=== PATIENT | female | born 1955 | race Caucasian/White ===

== ENCOUNTER → 2016-07-10 | Outpatient (CLI) | payer BC ==
[~2016-07-10] MED LIST: ASPEC81 PO; BUDESUS; CETI10TA84 PO; CRF1 PO; HYDC25 PO; LSN25 PO; METO25TA3 PO; MULT-506 PO; MYLANTA; OMEG10007 PO; PANT40TA PO; SALI0.6517
--- NOTE | 2016-07-10 11:04 | DIAGNOSTIC IMAGING REPORT ---
CHEST 2 VIEWS ROUTINE CLINICAL HISTORY: CHEST PAIN dyspnea COMPARISON STUDY: 07/05/2014 FINDINGS: The bones soft tissues and hemidiaphragms are normal. The cardiomediastinal silhouette is normal. The lungs are clear. The pulmonary vasculature is normal. IMPRESSION: Negative chest. Electronically signed by: Baldo Ring M.D. 07/10/2016 11:03 AM Dictated Date/Time: 07/10/2016 11:03 AM
== END | disposition home or self-care (01) ==
LOC: C.RAD1850 10:50
PROVIDERS: ATTEND Family Medicine
DX: R07.9 Chest pain, unspecified (principal)

== ENCOUNTER → 2016-12-07 | Outpatient (CLI) | payer BC ==
--- NOTE | 2016-12-07 12:10 | DIAGNOSTIC IMAGING REPORT ---
PELVIC ULTRASOUND, TRANSABDOMINAL AND TRANSVAGINAL CLINICAL HISTORY: 61-year-old female with unspecified abdominal pain. TECHNIQUE: Real-time grayscale and limited color Doppler ultrasound imaging of the pelvis was performed first using a transabdominal approach and subsequently transvaginal. COMPARISON: Correlation made to CT from 2007. FINDINGS: Uterus: Anteverted and normal in size measuring 7.8 x 2.3 x 3.3 cm. Apparent endometrial thickening at the fundus measuring 6 mm. No demonstrable flow within the endometrium or a convincing vascular stalk. Right ovary: Not visualized. Left ovary: Normal appearance and size measuring 1.6 x 1.3 x 1.1 cm. Other: No free fluid. IMPRESSION: 1. Mildly thickened endometrium measuring 6 mm. In the postmenopausal setting without bleeding this can be a normal finding. In the setting of vaginal bleeding, further evaluation would be indicated. 2. No acute pathology. Electronically signed by: Erich Pedroza 12/07/2016 12:09 PM Dictated Date/Time: 12/07/2016 12:03 PM
== END | disposition home or self-care (01) ==
LOC: C.ULTRBC 10:35
PROVIDERS: ATTEND Family Medicine
DX: R10.32 Left lower quadrant pain (principal)

== ENCOUNTER → 2017-05-03 | Outpatient (CLI) | payer BC ==
--- NOTE | 2017-05-04 14:27 | MAMMOGRAPHY REPORT ---
BILATERAL DIGITAL SCREENING MAMMOGRAM TOMOSYNTHESIS WITH CAD: 05/03/2017 CLINICAL HISTORY: Routine screening. Patient has no complaints. TECHNIQUE: Breast tomosynthesis in addition to standard 2D mammography was performed. Current study was also evaluated with a Computer Aided Detection (CAD) system. COMPARISON: Comparison is made to exams dated: 04/30/2016 mammogram, 04/29/2015 mammogram, 04/24/2014 mammogram, 04/18/2013 mammogram, 04/12/2012 mammogram, and 03/27/2011 mammogram - [facility]. BREAST COMPOSITION: There are scattered areas of fibroglandular density in both breasts. FINDINGS: There is a 6 mm focal asymmetry in the 12:00 middle to enter left breast, and a 7 mm asymm etry with possible associated architectural distortion in the lateral, middle one third of the left b reast on the CC view, for which additional spot compression tomosynthesis views and possible ultrasou nd are recommended. There is a stable evita-shaped biopsy marker clip in the medial left breast. A few scattered benign-ap pearing coarse calcifications bilaterally. No other suspicious mass, architectural distortion or clus ter of microcalcifications is seen. IMPRESSION: ACR BI-RADS CATEGORY 0: INCOMPLETE EVALUATION: NEED ADDITIONAL IMAGING EVALUATION The 6 mm focal asymmetry in the 12:00 left breast, and asymmetry with possible associated distortion in the lateral left breast need additional imaging evaluation. The patient will be called to schedule an appointment. Approximately 10% of breast cancers are not detected with mammography. A negative mammographic report should not delay biopsy if a clinically suggestive mass is present. Jessica Barney M.D. ay/:05/03/2017 16:54:16 Manager Assembly: Tamera IBRAHIM(Leonard)(Dedrick)([place]), [facility] letter sent: Addl Imaging 0 BI-RADS Code: ACR BI-RADS Category 0: Incomplete Evaluation: Need Additional Imaging Evaluation
== END | disposition home or self-care (01) ==
LOC: C.MAMM 10:22
PROVIDERS: ATTEND Physician Assistant
DX: Z12.31 Encounter for screening mammogram for malignant neoplasm of breast (principal); N64.89 Other specified disorders of breast

== ENCOUNTER → 2017-05-12 | Outpatient (CLI) | payer BC ==
--- NOTE | 2017-05-12 16:03 | MAMMOGRAPHY REPORT ---
UNILATERAL LEFT DIGITAL DIAGNOSTIC MAMMOGRAM TOMOSYNTHESIS AND TARGETED LEFT ULTRASOUND: 05/12/2017 CLINICAL HISTORY: 62-year-old woman called back from screening mammography for a 6 mm focal asymmetry in the 12:00 left breast, and a possible area of architectural distortion in the lateral, middle one third of the left breast. Family history of breast cancer = sister and grandmother. TECHNIQUE: Spot compression 2-D and tomosynthesis CC and MLO views of the left breast were obtained. COMPARISON: Comparison is made to exams dated: 05/03/2017 mammogram, 04/30/2016 mammogram, 04/29/2015 mammogram, 04/24/2014 mammogram, 04/18/2013 mammogram, and 04/12/2012 mammogram - [facility]. BREAST COMPOSITION: There are scattered areas of fibroglandular density in the left breast. FINDINGS: On the spot compression views of the left breast, there is a persistent 5 x 7 mm focal asym metry in the 12:00 middle to anterior breast approximately 6 cm distal to the nipple. No definite as sociated architectural distortion or calcification. Further characterization with ultrasound was per formed. There is effacement of the questionable area of architectural distortion in the lateral left breast with the spot compression tomosynthesis view in the lateral breast, suggesting this represent ed normal overlapping tissue. An asymmetry with possible distortion in the inferior left breast on t he MLO view partially effaces and appears similar to numerous prior mammograms, suggesting benign fib rocystic glandular tissue. Targeted ultrasound was performed in the inferior and lateral left breast including the 12:00 axis. In the 12:00 left breast, 1 cm from the nipple, there is an isoechoic multilobulated and possibly bobo rolobulated solid versus cystic mass measuring 5.2 x 4.3 x 5.4 mm. This is thought to correlate with the focal mammographic asymmetry and is indeterminate. Definitive characterization with an ultrasou nd-guided core biopsy is recommended. No other discrete solid or cystic mass was identified througho ut the lateral or inferior breast on targeted ultrasound, suggesting the effacing mammographic area o f distortion and other asymmetry are likely benign. IMPRESSION: ACR BI-RADS CATEGORY 4: SUSPICIOUS, TARGETED ULTRASOUND ACR BI-RADS CATEGORY 4: SUSPICIO US 1. Ultrasound-guided core biopsy is recommended for a microlobulated and multilobulated 5.4 mm isoec hoic mass in the 12:00 left breast, 1 cm from the nipple, thought to correlate with the focal asymmet ry seen mammographically in the 12:00 axis. 2. The other asymmetry and area of distortion in the inferior and lateral left breast effaced with s upplemental spot compression mammogram and tomosynthesis images and no suspicious sonographic correla erica were identified, suggesting benignity. However, pending benign pathology results from the biopsy in the left 12:00 breast, would recommend follow-up left diagnostic tomosynthesis mammograms and ult rasound to ensure stability in 6 months. These results and recommendations were discussed with the patient at the time of the exam. Approximately 10% of breast cancers are not detected with mammography. A negative mammographic report should not delay biopsy if a clinically suggestive mass is present. Jessica Barney M.D. ay/:05/12/2017 12:37:55 Tire Builder Operator: Irma GRIFFIN)(Dedrick), [facility] letter sent: Abnormal 4/5 BI-RADS Code: ACR BI-RADS Category 4: Suspicious Ultrasound BI-RADS: ACR BI-RADS Category 4: Suspici ous
== END | disposition home or self-care (01) ==
LOC: C.MAMM 11:08
PROVIDERS: ATTEND Physician Assistant
DX: R92.8 Other abnormal and inconclusive findings on diagnostic imaging of breast (principal); N64.89 Other specified disorders of breast; N63.20 Unspecified lump in the left breast, unspecified quadrant

== ENCOUNTER → 2017-05-17 | Outpatient (CLI) | payer BC ==
--- NOTE | 2017-05-17 13:26 | Discharge Instructions ---
Discharge Instructions Procedure Procedure Date: May 17, 2017. Reason for visit: Left Breast Mass. Discharge Discharge Date: May 17, 2017. Discharge Diagnosis: post left breast ultrasound guided core biopsy Instructions Activity Recommendations: Additional Limitations (see below) Return to School/Work: no limitations Recommended Home Diet: No Limitations Provider Instructions: ACTIVITY RECOMMENDATIONS: * No lifting, pushing, pulling or exercising the affected side for three days. RETURN TO SCHOOL/WORK: * You may return to work/school after the procedure, but do not perform any strenuous activities for 24 to 48 hours. MEDICATIONS: * Tylenol (two 325 mg) every four to six hours if needed for mild pain (if not allergic to Tylenol). DIET: * Resume previous diet. SPECIAL CARE INSTRUCTIONS: * Keep biopsy site dry for 24 hours. May shower after 24 hours, but do not soak (bathe) incision. * May remove Tegaderm (plastic patch) tomorrow AFTER showering. * Leave the steri-strips on for one week. Allow the steri-strips to fall off by themselves. If not off after one week, you may remove them. You may place a Bandaid crosswise over the strips, if desired. * Apply ice 10 minutes on and 10 minutes off as needed. * Wear a bra at bedtime to sleep more comfortably for 2-3 days. * Your referring physician should have the results after approximately 5 to 7 business days. * Call for unusual bleeding, fever, drainage, etc or if you have any questions call [phone] during normal business hours or after hours call Dr Barney, . FOLLOW UP VISIT: Follow-up with Referring Physician as scheduled. Allergies Coded Allergies: Codeine (Verified Allergy, Intermediate, RASH, DIZZY,NAUSEA-MAY TAKE TYLENOL,DARVOCET, 12/03/10) Methocarbamol (Verified Allergy, Intermediate, RASH,DIZZY,NAUSEA, 12/03/10) Naproxen (Verified Allergy, Intermediate, TINGLING TONGUE & MOUTH, 12/03/10) Sulfa Drugs (Verified Allergy, Intermediate, RASH, 12/03/10) Ibuprofen (Verified Allergy, Unknown, MAY TAKE ASA,NABUMETONE, 12/03/10) Morphine (Unverified Allergy, Unknown, UNKNOWN, 12/03/10) Mely Asencio Recommendations: Call your doctor if: * Temperature above 101 degrees * Pain not relieved by pain medicine ordered * There is increased drainage or redness from any incision * You have any unanswered questions or concerns. Your Doctors Instructions noted above were prepared by provider Jessica Barney. Patient Signature Section: Patient Instructions Signature Page Lynn Molinaler Patient (or Guardian) Signature/Date: I have read and understand the instructions given to me by my caregivers. Caregiver/RN/Doctor Signature/Date: The above-named patient and/or guardian has received patient instructions on this date. + Original Patient Signature Page (only) stays with chart. Please make copy for patient.
--- NOTE | 2017-05-17 15:08 | MAMMOGRAPHY REPORT ---
ULTRASOUND GUIDED BIOPSY LEFT BREAST: 05/17/2017 CLINICAL HISTORY: Indeterminate multilobulated versus microlobulated 5-6 mm mass in the 12:00 left br east. Patient presents for ultrasound-guided core needle biopsy. COMPARISON: Comparison is made to exams dated: 05/12/2017 ultrasound, 05/12/2017 mammogram, 7 mammogram, 04/30/2016 mammogram, 04/29/2015 mammogram, and 04/24/2014 mammogram - [facility]. PATIENT CONSENT: The procedure, risks and benefits were discussed with the patient and informed conse nt was obtained both verbally and in writing. Specific risks to this procedure include: bleeding, in fection, puncture of adjacent structure, nontarget biopsy, sampling error, pain, metal allergy and me dication reaction. PROCEDURE DESCRIPTION: A time out was performed and the left breast was agreed as the site of biopsy. The skin was prepped and draped in the usual sterile fashion. The multilobulated hypoechoic versus i soechoic 5 mm mass in the 12:00 left breast was chosen as the target for biopsy. Subcutaneous and int raparenchymal 1% buffered lidocaine, with and without epinephrine, was administered as local anesthes ia. A skin incision was made. Through the incision, 4 samples were taken with a 14 gauge Theravance psy device. After the first biopsy pass, the lesion became less distinct on ultrasound likely second venkata to air bubbles causing shadowing. After the fourth biopsy pass, a ribbon shaped metallic marker was placed at the expected location of the mass and biopsy site although this was not well seen due t o air bubbles. Hemostasis was achieved after manual compression. The patient tolerated the procedure well and there was no immediate complication. The samples were sent to the pathology department in an appropriately labeled container. Postprocedure left CC and ML tomosynthesis images were obtained. A new ribbon-shaped biopsy marker c lip is seen in the 12:00 middle one third of the left breast, at the site of the multilobulated mass identified on ultrasound. This is thought to correlate with the focal asymmetry identified in the 12 :00 left breast but the marker clip is displaced 7 mm lateral to the geometric center of this asymmet ry based on the CC plane. Several air bubbles are seen within the asymmetry on tomosynthesis slice 4 1, suggesting adequate tissue sampling. IMPRESSION: ULTRASOUND GUIDED BIOPSY Status post ultrasound-guided core biopsy of a multilobulated versus microlobulated isoechoic mass in the 12:00 left breast, with biopsy marker placed at the site. Pending benign pathology results, follow-up left diagnostic tomosynthesis mammograms and possible ult rasound are recommended to ensure stability of other asymmetries and findings within the left breast seen on prior diagnostic workup. The patient will receive written notification of the results. Jessica Barney M.D. ay/:05/17/2017 14:56:46 Wastewater Analyst: Maria Dolores Kaye, [facility]
--- NOTE | 2017-05-17 15:09 | MAMMOGRAPHY REPORT ---
UNILATERAL LEFT DIGITAL DIAGNOSTIC MAMMOGRAM TOMOSYNTHESIS: 05/17/2017 CLINICAL HISTORY: Status post ultrasound-guided core biopsy of an isoechoic multilobulated versus bobo rolobulated 5.4 mm mass in the 12:00 left breast. Please refer to the report from left breast ultrasound guided core biopsy performed at the same time for full detail. IMPRESSION: POST PROCEDURE IMAGING FOR MARKER PLACEMENT Please refer to the report from left breast ultrasound guided core biopsy performed at the same time for full detail. Approximately 10% of breast cancers are not detected with mammography. A negative mammographic report should not delay biopsy if a clinically suggestive mass is present. Jessica Barney M.D. ay/:05/17/2017 13:25:34 Printing Machine Operator: Maria Dolores Kaye, [facility] BI-RADS Code: Post Procedure Imaging For Marker Placement
== END | disposition home or self-care (01) ==
LOC: C.MAMM 12:33
PROVIDERS: ATTEND Physician Assistant
DX: R92.8 Other abnormal and inconclusive findings on diagnostic imaging of breast (principal); N63.20 Unspecified lump in the left breast, unspecified quadrant; D24.2 Benign neoplasm of left breast

== ENCOUNTER 2017-08-17 12:15 | Emergency (ER) | payer BC, OTHER ==
[~2017-08-17] VITALS: Ht 152.4 cm; Wt 88.5 kg
[2017-08-17 12:19] VITALS: Ht 152.4 cm; Wt 88.5 kg
[2017-08-17 12:27] VITALS: O2SAT 99
[2017-08-17] MEDS ORDERED: HydrALAZINE HCL 20 MG/ML VIAL IV. STA (12:52)
[2017-08-17] MEDS ORDERED: ACET-1693 PO (13:00)
[2017-08-17] MEDS ORDERED: LISI10TA PO (13:00)
[2017-08-17] MEDS ORDERED: ASPI-435 (13:00)
[2017-08-17] MEDS ORDERED: CETI10TA84 PO (13:00)
[2017-08-17] MEDS ORDERED: FLVHFA44 INH (13:00)
[2017-08-17 13:06] LABS: BASO % 0.3 %; BASO ABS # 0.03 K/uL (0-0.2); EOS % 1.7 %; EOS ABS # 0.15 K/uL (0-0.5); HEMATOCRIT 44.4 % (37-47); HEMOGLOBIN 14.8 g/dL (12.0-16.0); IG# 0.03 K/uL (0.00-0.02); LYMPH % 32.7 %; LYMPH ABS # 2.85 K/uL (1.2-3.4); MEAN CELL VOLUME 92.3 fL (80-100); MEAN CORPUSCULAR HEMOGLOBIN 30.8 pg (25-34); MEAN CORPUSCULAR HGB CONC 33.3 g/dl (32-36); MEAN PLATELET VOLUME 10.7 fL (7.4-10.4); MONO % 5.7 %; NEUT % 59.3 %; NEUT ABS # 5.15 K/uL (1.4-6.5); PLATELET COUNT 258 K/uL (130-400); RED CELL DISTRIBUTION WIDTH CV 13.1 % (11.5-14.5); RED CELL DISTRIBUTION WIDTH SD 44.6 fL (36.4-46.3); WHITE BLOOD COUNT 8.71 K/uL (4.8-10.8)
--- NOTE | 2017-08-17 13:09 | EMERGENCY ROOM VISIT NOTE ---
History Report prepared by Zach: Christi Mcneill Under the Supervision of: Dr. Martín Velarde M.D. First contact with patient: 12:40 Chief Complaint: CARDIAC ASSESSMENT Stated Complaint: CHEST DISCOMFORT,HEADACHE,ELEVATED BP History of Present Illness The patient is a 62 year old female who presents to the Emergency Room with complaints of an episode of left chest pain radiating to her back occurring about 12 hours ago. The patient describes her pain as a pressure and states the episode lasted for about 3 hours. She reports taking extra strength Maalox with no relief. She denies any modifying or worsening factors during the episode. The patient states she had a similar episode on Wednesday. She reports going out to dinner on Wednesday and last night. The patient reports she sleeps elevated due to her history of GERD. She states her symptoms did not feel like her normal reflux. She denies any heart palpitations, nausea, vomiting, shortness of breath, leg pain, or abdominal pain. She notes a mild headache. The patient had a stress test a year ago for palpitations. The patient recently traveled to [facility]. She denies any personal cardiac history or history of DVTs. The patient has a family history of heart attacks. Source of History: patient Onset: 12 hours ago Position: chest (left) Quality: pressure Timing: other (episode) Associated Symptoms: + headache, + chest pain, + back pain, No SOB, No nausea, No vomiting Review of Systems See HPI for pertinent positives & negatives. A total of 10 systems reviewed and were otherwise negative. Past Medical & Surgical Medical Problems: (1) GERD (gastroesophageal reflux disease) (2) Tobacco dependence in remission Family History FH: heart attack Social History Smoking Status: Former Smoker Current/Historical Medications Scheduled Cetirizine (Zyrtec), 10 MG PO DAILY Fluticasone Propionate (Flovent Hfa), 2 PUFFS INH BID Miscellaneous Medications Acetaminophen Tab (Tylenol), 325 MG PO Aspirin (Aspirin 81) Lisinopril (Prinivil), 10 MG PO Allergies Coded Allergies: Codeine (Verified Allergy, Intermediate, RASH, DIZZY,NAUSEA-MAY TAKE TYLENOL,DARVOCET, 08/17/17) Methocarbamol (Verified Allergy, Intermediate, RASH,DIZZY,NAUSEA, 08/17/17) Naproxen (Verified Allergy, Intermediate, TINGLING TONGUE & MOUTH, 08/17/17 ) Sulfa Drugs (Verified Allergy, Intermediate, RASH, 08/17/17) Ibuprofen (Verified Allergy, Unknown, MAY TAKE ASA,NABUMETONE, 08/17/17) Morphine (Unverified Allergy, Unknown, UNKNOWN, 08/17/17) Atorvastatin (Verified Adverse Reaction, Unknown, muscle/joint pain, ) Rosuvastatin (Verified Adverse Reaction, Unknown, headache, confusion, ) Physical Exam Vital Signs Date Time Temp Pulse Resp B/P (MAP) Pulse Ox O2 Delivery O2 Flow Rate FiO2 08/17/17 15:46 36.3 73 16 153/77 98 08/17/17 15:09 73 16 153/77 98 Room Air 08/17/17 14:01 150/94 08/17/17 14:00 73 21 98 Room Air 08/17/17 13:31 161/80 08/17/17 13:30 73 16 98 Room Air 08/17/17 13:01 179/92 08/17/17 13:00 59 14 98 Room Air 08/17/17 12:51 59 19 188/95 100 Room Air 08/17/17 12:46 100 Room Air 08/17/17 12:33 66 08/17/17 12:27 99 Room Air 08/17/17 12:19 36.3 81 18 192/80 99 Room Air Physical Exam GENERAL: Patient is mildly anxious appearing and in minimal distress. EYES: No scleral icterus, unremarkable pupils. ENT: Mucous membranes moist, no nasal congestion. NECK: No masses appreciated, no meningismus, trachea is midline. RESPIRATORY: No dyspnea. Clear to auscultation and equal bilaterally. No wheeze , no rhonchi. CARDIOVASCULAR: Regular rate and rhythm. No murmurs, rubs, gallops appreciated. GASTROINTESTINAL: Abdomen soft, nontender, no peritonitis. Bowel sounds positive. No masses appreciated. BACK: No midline tenderness, no CVA tenderness EXTREMITIES: Normal motion all extremities, no cyanosis, no edema. NEUROLOGIC: Alert and oriented, no acute motor or sensory deficits, no focal weakness, cranial nerves grossly intact. SKIN: No rash, no jaundice, no diaphoresis. Medical Decision & Procedures ER Provider Diagnostic Interpretation: Radiology results and stated below per my review and radiologist interpretation: CHEST ONE VIEW PORTABLE FINDINGS: Cardiomediastinal and hilar silhouettes are within normal limits. There is no pneumothorax, pleural effusion, focal airspace consolidation or overt pulmonary edema. The bones of the chest appear grossly intact. Mild levoscoliosis of the upper thoracic spine redemonstrated. Multilevel degenerative changes of the spine. IMPRESSION: No acute process. The above report was generated using voice recognition software. It may contain grammatical, syntax or spelling errors. Electronically signed by: Pio Strickland M.D. Laboratory Results 08/17/17 12:47 Red Blood Count 4.81, Mean Corpuscular Volume 92.3, Mean Corpuscular Hemoglobin 30.8, Mean Corpuscular Hemoglobin Concent 33.3, Mean Platelet Volume 10.7, Neutrophils (%) (Auto) 59.3, Lymphocytes (%) (Auto) 32.7, Monocytes (%) (Auto) 5.7, Eosinophils (%) (Auto) 1.7, Basophils (%) (Auto) 0.3, Neutrophils # (Auto) 5.15, Lymphocytes # (Auto) 2.85, Monocytes # (Auto) 0.50, Eosinophils # (Auto) 0.15, Basophils # (Auto) 0.03 08/17/17 12:47 Test 08/17/17 12:47 08/17/17 14:56 White Blood Count 8.71 K/uL (4.8-10.8) Red Blood Count 4.81 M/uL (4.2-5.4) Hemoglobin 14.8 g/dL (12.0-16.0) Hematocrit 44.4 % (37-47) Mean Corpuscular Volume 92.3 fL (80-100) Mean Corpuscular Hemoglobin 30.8 pg (25-34) Mean Corpuscular Hemoglobin Concent 33.3 g/dl (32-36) Platelet Count 258 K/uL (130-400) Mean Platelet Volume 10.7 fL (7.4-10.4) Neutrophils (%) (Auto) 59.3 % Lymphocytes (%) (Auto) 32.7 % Monocytes (%) (Auto) 5.7 % Eosinophils (%) (Auto) 1.7 % Basophils (%) (Auto) 0.3 % Neutrophils # (Auto) 5.15 K/uL (1.4-6.5) Lymphocytes # (Auto) 2.85 K/uL (1.2-3.4) Monocytes # (Auto) 0.50 K/uL (0.11-0.59) Eosinophils # (Auto) 0.15 K/uL (0-0.5) Basophils # (Auto) 0.03 K/uL (0-0.2) RDW Standard Deviation 44.6 fL (36.4-46.3) RDW Coefficient of Variation 13.1 % (11.5-14.5) Immature Granulocyte % (Auto) 0.3 % Immature Granulocyte # (Auto) 0.03 K/uL (0.00-0.02) D-Dimer 460 ug/L FEU (0-500) Anion Gap 7.0 mmol/L (3-11) Est Creatinine Clear Calc Drug Dose 58.2 ml/min Estimated GFR () 71.2 Estimated GFR (Non- 61.4 BUN/Creatinine Ratio 17.0 (10-20) Calcium Level 10.1 mg/dl (8.5-10.1) Troponin I < 0.015 ng/ml (0-0.045) Bedside Troponin I < 0.030 ng/ml (0-0.045) Laboratory results as reviewed by me. Medications Administered Medications (Trade) Dose Ordered Sig/Vivi Route Start Time Stop Time Status Last Admin Dose Admin Hydralazine HCl (HydrALAZINE INJ) 10 mg NOW STAT IV. 08/17/17 12:52 08/17/17 12:53 DC 08/17/17 13:10 10 MG Acetaminophen 1000 mg/Empty Bag 100 ml @ 400 mls/hr NOW STAT IV 08/17/17 14:18 08/17/17 14:32 DC 08/17/17 14:36 400 MLS/HR ECG Per My Interpretation Indication: chest pain Rate (beats per minute): 64 Rhythm: sinus rhythm Findings: PAC, no acute ischemic change, other (QTC 400) ED Course 1242: The patient was evaluated in room C8. A complete history and physical exam was performed. 1416: On reassessment, the patient notes a worsening headache. She states she has previously been given morphine to help with her headaches. She does not recall having imaging of brain before. We discussed coming into the hospital vs discharge with close follow up and the patient prefers to go home. 1500: Reevaluated the patient. Discussed results and discharge instructions: She verbalized understanding and agreement. The patient is ready for discharge. Medical Decision Differential: Cardiac Ischemia (STEMI, NSTEMI, Unstable Angina, etc), Aortic Dissection, Arrhythmia, Pulmonary Embolism, Pneumonia, Pneumothorax, MSK, Infectious, Pericarditis/Myocarditis, Esophageal Rupture, Gastrointestinal, amongst other pathologies entertained. 62 yr old female with history of HTN, DLP, family CAD, and recent travel. No cardiac history and has holter monitor as well as stress test 1 year ago. 3 hours of left chest pressure last night as well as few days ago. EKG x 2 here as well as trops x 2 are negative. Dimer wnl thus with low risk PE I feel CT not indicated. CXR clear. Labs unremarkable. Complaining of headache which notes happened similar to previous episode chest pains that she was seen for. As complaining of worsening headache felt CT reasonable which was done and fortunately negative. Tyl/Morphine with improvement. She has no evidence of ACS. This does not sound like typical unstable angina. I did discuss bringing in for further cardiac work-up and evaluation however this would be obs and wants to avoid unnecessary charge which given she has close follow up with PCP I think is reasonable to go home. Discussed symptoms requiring RTED/911. Stressed follow up with PCP in 24 hours. Medication Reconcilliation Current Medication List: was personally reviewed by me Blood Pressure Screening Patient's blood pressure: Elevated blood pressure Blood pressure disposition: Referred to PCP Impression Primary Impression: Left sided chest pain Additional Impressions: Hypertension Headache Scribe Attestation The scribe's documentation has been prepared under my direction and personally reviewed by me in its entirety. I confirm that the note above accurately reflects all work, treatment, procedures, and medical decision making performed by me. Departure Information Dispostion Home / Self-Care Referrals Michael Jose M.D. (PCP) Patient Instructions ED Chest Pain Atypical Unkn Cause, My [facility] Additional Instructions Your blood pressure was elevated during this visit. This is quite common in many people who are being evaluated in the Emergency Department for many reasons. However, it is important that you have your Primary Care Provider recheck your blood pressure and discuss whether treatment will be needed. intermediate elevated blood pressure can lead to strokes, heart attacks, kidney failure amongst other medical issues. If you develop severe headaches, chest pain, weakness in arms or legs, or other concerning symptoms call 911. Problem Qualifiers
[2017-08-17 13:18] LABS: BLOOD UREA NITROGEN 17 mg/dl (7-18); CALCIUM 10.1 mg/dl (8.5-10.1); CARBON DIOXIDE 26 mmol/L (21-32); CREATININE 0.98 mg/dl (0.60-1.20); GLUCOSE 97 mg/dl (70-99); POTASSIUM 3.9 mmol/L (3.5-5.1); SODIUM 139 mmol/L (136-145)
--- NOTE | 2017-08-17 13:23 | DIAGNOSTIC IMAGING REPORT ---
CHEST ONE VIEW PORTABLE HISTORY: 62 years-old Female Chest Pain acute atypical chest pain COMPARISON: Chest radiographs 07/10/2016 TECHNIQUE: Portable AP view of the chest FINDINGS: Cardiomediastinal and hilar silhouettes are within normal limits. There is no pneumothorax, pleural effusion, focal airspace consolidation or overt pulmonary edema. The bones of the chest appear grossly intact. Mild levoscoliosis of the upper thoracic spine redemonstrated. Multilevel degenerative changes of the spine. IMPRESSION: No acute process. The above report was generated using voice recognition software. It may contain grammatical, syntax or spelling errors. Electronically signed by: Pio Strickland M.D. 08/17/2017 1:22 PM Dictated Date/Time: 08/17/2017 1:20 PM
[2017-08-17] MEDS ORDERED: ACETAMINOPHEN IV 1,000 MG in EMPTY BAG 0 ML IV STA (14:18)
[2017-08-17] MEDS ORDERED: MoRPHine SULFATE 4 MG/ML 1 ML CARP\\VIAL IV STA (14:18)
--- NOTE | 2017-08-17 15:12 | DIAGNOSTIC IMAGING REPORT ---
HEAD WITHOUT CONTRAST (CT) CLINICAL HISTORY: 62 years-old Female with worsening posterior headache last few hours. Acute headache TECHNIQUE: Multiple axial CT images of the head were obtained without contrast. A dose lowering technique was utilized adhering to the principles of ALARA. CT DOSE: 537.48 mGy.cm COMPARISON: None. FINDINGS: No acute intracranial hemorrhage, midline shift, intracranial mass, hydrocephalus, territorial ischemia or abnormal extra-axial collection. The calvarium is intact. The paranasal sinuses, mastoid air cells, and middle ear cavities are clear. IMPRESSION: No acute intracranial abnormality. The above report was generated using voice recognition software. It may contain grammatical, syntax or spelling errors. Electronically signed by: Pio Strickland M.D. 08/17/2017 3:11 PM Dictated Date/Time: 08/17/2017 3:09 PM
[2017-08-17 15:46] VITALS: BP 153/77; PULSE 73; TEMP 36.3; O2SAT 98
== END 2017-08-17 15:47 | disposition home or self-care (01) ==
LOC: C.EDB 12:17 → C.EDC 15:47
DX: R07.89 Other chest pain (principal); I10 Essential (primary) hypertension; R51 Headache; K21.9 Gastro-esophageal reflux disease without esophagitis; Z87.891 Personal history of nicotine dependence; Z82.49 Family history of ischemic heart disease and other diseases of the circulatory system; Z88.5 Allergy status to narcotic agent; Z88.8 Allergy status to other drugs, medicaments and biological substances; Z88.2 Allergy status to sulfonamides; Z88.6 Allergy status to analgesic agent